=== PATIENT | female | born 2000 | race Caucasian/White ===

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

== ENCOUNTER 2019-09-18 17:58 | Emergency (ER) | payer SELFPAY ==
--- OUTSIDE RECORDS SUMMARY | 2019-09-18 18:03 | XMS REPORT | Continuity of Care Document ---
:2000 External Reference #:[id number] Author Name Fatimah Arrington MD Address [address] [place] [address] Care Team Providers Name Role Phone HCP given Care Team Information Telegraphic Service Dispatcher Unavailable Jon Garcia MD - Cardiovascular Care Team Information Telegraphic Service Dispatcher Disease Problems Active Problems Provider Date Irritable bowel syndrome with diarrhea Liset Carranza PA Onset: 02/03/2019 Adjustment disorder with mixed emotional features Liset Carranza PA Onset: Overweight Liset Carranza PA Onset: 02/03/2019 Allergic rhinitis Liset Carranza PA Onset: 02/03/2019 Social History Type Date Description Comments Sex Female Tobacco Use Reviewed: 02/03/19 Denies Cigarette Use Smoking Status Reviewed: 02/07/19 Denies Cigarette Use ETOH Use 02/03/2019 Denies alcohol use Recreational Drug Use Cannabis a couple times a month Tobacco Use Start: Unknown Non Smoker Exercise Type/Frequency Exercises rarely Sun Exposure Does not use sunscreen Seat Belt/Car Seat Seat Belt Use - Yes Smoke Alarms Yes smoke alarm Allergies, Adverse Reactions, Alerts Description No Known Drug Allergies Medications Active Medications SIG Qnty Indications Ordering Date Provider Depo-Provera 150mg intramuscular 1ml Z30.09 Farshad Parr, 02/03/2019 150mg/ml q3 months M.D. Suspension Tylenol Extra take 2 tablets 3x/day Unknown 01/30/2019 Strength for pain prn 500mg Tablets Medications Administered in Office Medication SIG Qnty Indications Ordering Provider Date SC/Im Injections Nurse's Schedule 07/30/2019 Injection SC/Im Injections Nurse's Schedule 05/08/2019 Injection SC/Im Injections Nurse's Schedule 02/06/2019 Injection Immunizations CPT Code Status Date Vaccine Lot # [id number] Given 04/03/2018 Hep A, Ped/Adolscent, 2 Dose 19502 Given 09/25/2017 Hep A, Ped/Adolscent, 2 Dose U-MenB Given 09/25/2017 Meningococcal B,Unspecified 02137 Given 09/25/2017 Adacel or Boostrix, TDaP 34142 Given 09/12/2016 Menactra Menningitis Vaccine U-MenB Given 09/07/2015 Meningococcal B,Unspecified 04793 Given 10/31/2011 Gardasil HPV vaccine 07103 Given 06/27/2011 Gardasil HPV vaccine 54097 Given 04/26/2011 Gardasil HPV vaccine 28161 Given 04/25/2011 Adacel or Boostrix, TDaP 92982 Given 01/22/2008 Menactra Menningitis Vaccine 45355 Given 01/22/2008 Varicella (Chicken Pox) Immunization 99464 Given 01/17/2004 Dtap Immunization (Tripedia) (Infanrix) 65023 Given 01/13/2004 Poliomyelitis Immunization 52944 Given 01/13/2004 MMR Virus Immunization 66139 Given 07/08/2000 Dtap Immunization (Tripedia) (Infanrix) 42866 Given 07/08/2000 Hepb-Hib 84086 Given 04/01/2000 Varicella (Chicken Pox) Immunization 82046 Given 04/01/2000 Poliomyelitis Immunization 52924 Given 04/01/2000 MMR Virus Immunization 97683 Given 01/22/2000 Hep B Immunization, Ped/Adolescent To 11 Yrs 02962 Given 1999 Hep B Immunization, Ped/Adolescent To 11 Yrs 96843 Given 1999 Dtap Immunization (Tripedia) (Infanrix) 47263 Given 1999 3 dose Hib (PRP-Omp) 36635 Given 1999 Poliomyelitis Immunization 37510 Given 1999 Dtap Immunization (Tripedia) (Infanrix) 28876 Given 1999 3 dose Hib (PRP-Omp) 05436 Given 1999 Poliomyelitis Immunization 49691 Given 1999 Dtap Immunization (Tripedia) (Infanrix) 72735 Given 1999 3 dose Hib (PRP-Omp) U-Flu Refused 05/11/2019 Influenza,Unspecified Vital Signs Date Vital Result Comment 08/07/2019 10:43am BP Systolic 112 mmHg BP Diastolic 60 mmHg Height 67.5 inches 5'7.50" Weight 220.00 lb BMI (Body Mass Index) 33.9 kg/m2 07/30/2019 4:03pm BP Systolic 120 mmHg BP Diastolic 68 mmHg Weight 221.00 lb Results Test Acquired Date Facility Test Result H/L Range Note Hepatitis C Antibody 08/07/2019 [facility] HCV Index 0.03 s/c [phone] Hepatitis C Antibody Negative Negative Liver Function 08/07/2019 [facility] Total Protein 6.8 g/dL Normal 6.4-8.9 Panel [phone] Albumin 4.4 g/dL Normal 3.2-5.2 Globulin 2.4 g/dL Normal 2-4 Albumin/Globulin Ratio 1.8 Normal 1-3 Total Bilirubin 0.50 mg/dL Normal 0.2-1.0 Direct Bilirubin 0.10 mg/dL Normal 0.03-0.18 Indirect Bilirubin 0.4 mg/dL Normal 0.3-1.0 Alkaline Phosphatase 76 U/L Normal 34-104 Alt 77 U/L High 7-52 Ast 73 U/L High 13-39 Laboratory test 05/25/2019 [facility] Creatine 281 U/L High 10-223 finding [phone] Kinase(CK) Ua Inhouse 05/11/2019 In House Ua Specific 1.015 [place] Ua PH 6.0 CBC Auto Diff 05/11/2019 [facility] White Blood 6.8 10^3/uL Normal 3.5-10.8 [phone] Count Red Blood Count 4.67 10^6/uL Normal 3.70-4.87 Hemoglobin 14.5 g/dL Normal 12.0-16.0 Hematocrit 41 % Normal 35-47 Mean Corpuscular Volume 88 fL Normal 80-97 Mean Corpuscular Hemoglobin 31 pg Normal 27-31 Mean Corpuscular HGB Conc 35 g/dL Normal 31-36 Red Cell Distribution Width 13 % Normal 10-15 Platelet Count 265 10^3/uL Normal 150-450 Mean Platelet Volume 9.6 fL Normal 7.4-10.4 Abs Neutrophils 3.2 10^3/uL Normal 1.5-7.7 Abs Lymphocytes 2.5 10^3/uL Normal 1.0-4.8 Abs Monocytes 0.7 10^3/uL Normal 0-0.8 Abs Eosinophils 0.3 10^3/uL Normal 0-0.6 Abs Basophils 0.0 10^3/uL Normal 0-0.2 Abs Nucleated RBC 0.0 10^3/uL Granulocyte % 47.2 % Lymphocyte % 36.9 % Monocyte % 10.8 % Eosinophil % 4.6 % Basophil % 0.5 % Nucleated Red Blood Cells % 0.0 Laboratory test 05/11/2019 [facility] Creatine 440 U/L High 10-223 finding [phone] Kinase(CK) Comp Metabolic 05/11/2019 [facility] Sodium 139 Normal 135-145 Panel [phone] mmol/L Potassium 4.2 mmol/L Normal 3.5-5.0 Chloride 107 mmol/L Normal 101-111 Co2 Carbon Dioxide 25 mmol/L Normal 22-32 Anion Gap 7 mmol/L Normal 2-11 Glucose 89 mg/dL Normal 70-100 Blood Urea Nitrogen 11 mg/dL Normal 6-24 Creatinine 0.90 mg/dL Normal 0.51-0.95 BUN/Creatinine Ratio 12.2 Normal 8-20 Calcium 9.6 mg/dL Normal 8.6-10.3 Total Protein 6.9 g/dL Normal 6.4-8.9 Albumin 4.5 g/dL Normal 3.2-5.2 Globulin 2.4 g/dL Normal 2-4 Albumin/Globulin Ratio 1.9 Normal 1-3 Total Bilirubin 0.30 mg/dL Normal 0.2-1.0 Alkaline Phosphatase 76 U/L Normal 34-104 Alt 28 U/L Normal 7-52 Ast 22 U/L Normal 13-39 Egfr Non- 79.8 >60 Egfr 96.6 >60 1 1 Because ethnic data is not always readily available, this report includes an eGFR for both -Americans and non- Americans. The National Kidney Disease Education Program (NKDEP) does not endorse the use of the MDRD equation for patients that are not between the ages of 18 and 70, are , have extremes of body size, muscle mass, or nutritional status, or are non- or non-. According to the National Kidney Foundation, irrespective of diagnosis, the stage of the disease is based on the level of kidney function: Stage Description GFR(mL/min/1.73 m(2)) 1 Kidney damage with normal or decreased GFR 90 2 Kidney damage with mild decrease in GFR 60-89 3 Moderate decrease in GFR 30-59 4 Severe decrease in GFR 15-29 5 Kidney failure <15 (or dialysis) Procedures Date Code Description Status 07/30/2019 96745 SC/Im Injections Completed 05/11/2019 78546 Electrocardiogram Complete Completed 05/08/2019 75442 SC/Im Injections Completed Medical Devices Description No Information Available Encounters Type Date Location Provider Dx Diagnosis Office Visit 08/07/2019 Main Office Fatimah Arrington MD R10.11 Right upper 10:30a quadrant pain R10.815 Periumbilic abdominal tenderness Z68.33 Body mass index (BMI) 33.0-33.9, adult Office Visit 05/11/2019 1:20p Main Office Latasha Lan P.Bhupendra. R00.2 Palpitations M79.10 Myalgia, unspecified site Office Visit 05/08/2019 2:00p Main Office Nurse's Z30.42 Encounter for Schedule surveillance of injectable contraceptive Assessments Date Code Description Provider 08/07/2019 R10.11 Right upper quadrant pain Fatimah Arrington MD 08/07/2019 R10.815 Periumbilic abdominal tenderness Fatimah Arrington MD 08/07/2019 Z68.33 Body mass index (BMI) 33.0-33.9, adult Fatimah Arrington MD 07/30/2019 Z30.013 Encounter for initial prescription of Nurse's Schedule injectable contracepti 05/11/2019 R00.2 Palpitations Latasha Lan P.A. 05/11/2019 M79.10 Myalgia, unspecified site Latasha Lan P.Bhupendra. 05/08/2019 Z30.42 Encounter for surveillance of injectable Nurse's Schedule contraceptive Plan of Treatment 02/03/2019 - Liset Carranza PAZ00.01 Encounter for general adult medical examination with abnormaComments:18 year old female. Screening updated. Awaiting old records.[facility] Amenorrhea, unspecifiedComments:Negative test again today. Discussed other causes for a missed period, including stress.Z30.09 Encounter for other general counseling and advice on contracNew Medication:Depo-Provera 150 mg/ml - 150mg intramuscular q3 monthsComments:Discussed control options, pt prefers Depo-Provera. Rx sent, pt will return for injection Q3 months.Follow up: schedule nurse visit for Depo asapK58.0 Irritable bowel syndrome with diarrheaComments:Likely IBS. Discussed impact of stress and unhealthy diet. Pt will work on stress reduction and improved diet.F43.23 Adjustment disorder with mixed anxiety and depressed moodComments:Discussed returning to counselor, but pt was hesitant. She refuses to try any medication for mood after severe reaction to one in the past. Monitor closely.E66.3 OverweightComments:Discussed healthy diet and regular exercise for weight loss.J30.9 Allergic rhinitis, unspecifiedComments:OTC allergy meds as needed. Functional Status Description No Information Available Mental Status Description No Information Available Referrals Refer to Reason for Referral Status Appt Date Jon Garcia MD holter monitor, in pt w skipped beats, and heart Closed palpitations that have recently worsen [address] [address] [phone]
[2019-09-18 18:26] VITALS: BP 153/87
--- NOTE | 2019-09-18 18:38 | UC ---
Abdominal Pain Female HPI - HPI Summary HPI Summary: 19 yo female presents with RUQ pain. She tells me that for the past month to month and a half she has been having intermittent RUQ pain that is mostly dull and achy, but is sharp at times. States this is worse after movement such as feeding her fishes in the fish tank. Not associated with eating. She does feel nauseous at times, but has not vomited. She saw her PCP and had labwork which she tells me showed elevated liver enzymes. She was scheduled for an ultrasound around 3 weeks ago, but did not go to this for some reason. Tonight she comes in because she is "tired of dealing with the pain" and wants to know what is going on. Her pain is not worse this evening, but is the same as prior events. She denies fever, chills, SOB, chest pain, dysuria, vomiting, diarrhea. States she has been to [facility] many times for this, but always waits 6+ hours and is never evaluated. - History of Current Complaint Chief Complaint: UCAbdominalPain Stated Complaint: SIDE PAIN Time Seen by Provider: 09/18/19 18:37 Hx Obtained From: Patient Hx Last Menstrual Period: months ago Onset/Duration: Gradual Onset Severity Initially: Moderate Severity Currently: Moderate Pain Intensity: 5 Allergies/Adverse Reactions: Allergies Allergy/AdvReac Type Severity Reaction Status Date / Time shamar Allergy Hives Verified 09/18/19 18:26 FLEA COLLARS Allergy Severe DIFFICULTY Uncoded 06/20/17 18:34 BREATHING, HIVES [place] Allergy Severe Hives Uncoded 06/20/17 18:34 birdox Allergy Hives Uncoded 09/18/19 18:26 Home Medications: Home Medications medroxyPROGESTERone ACETATE* [DEPO-Provera*] 150 mg PO 09/18/19 [History] PMH/Surg Hx/FS Hx/Imm Hx - Additional Past Medical History Additional PMH: None Other History Of: Negative For: HIV, Hepatitis B, Hepatitis C, Anticoagulant Therapy - Surgical History Surgical History: None - Family History Known Family History: Positive: Cardiac Disease, Other - Cancer Negative: Hypertension Family History: Dyslipidemia, cancer - Social History Lives: With Family Alcohol Use: None Substance Use Type: None Smoking Status (MU): Never Smoked Tobacco - Immunization History Most Recent Influenza Vaccination: 2015 Most Recent Tetanus Shot: UTD Vaccination Up to Date: Yes Review of Systems All Other Systems Reviewed And Are Negative: No Constitutional: Positive: Negative Skin: Positive: Negative Eyes: Positive: Negative ENT: Positive: Negative Respiratory: Positive: Negative Cardiovascular: Positive: Negative Gastrointestinal: Positive: Abdominal Pain, Nausea Genitourinary: Positive: Negative Motor: Positive: Negative Neurovascular: Positive: Negative Musculoskeletal: Positive: Negative Neurological/Mental Status: Positive: Negative Psychological: Positive: Negative Physical Exam - Summary Physical Exam Summary: GENERAL: NAD. WDWN. No pain distress. SKIN: No rashes, sores, lesions, or open wounds. NECK: Supple. Nontender. No lymphadenopathy. CHEST: CTAB. No r/r/w. No accessory muscle use. Breathing comfortably and in no distress. CV: RRR. Pulses intact. Cap refill <2seconds ABDOMEN: Soft. NTTP. No distention or guarding. No CVA tenderness. Bowel sounds present. Negative beard sign. No mcburney point tenderness. NEURO: Alert. PSYCH: Age appropriate behavior. Triage Information Reviewed: Yes Vital Signs: Initial Vital Signs Temp 98.7 F 09/18/19 18:19 Pulse 84 09/18/19 18:19 Resp 16 09/18/19 18:19 BP 153/87 09/18/19 18:19 Pulse Ox 100 09/18/19 18:19 Laboratory Tests 09/18/19 18:34 POC Urine Color Light yellow POC Urine Clarity Clear POC Urine pH 6.0 POC Ur Specif [place] 1.015 POC Urine Protein Negative POC Ur Glucose (UA) Negative POC Urine Ketones Negative POC Urine Blood 2+ A POC Urine Nitrite Negative POC Urine Bilirubin Negative POC Urine Urobilinogen 0.2 POC U Leukocyte Esteras Negative Vital Signs Reviewed: Yes Abd Pain Female Course/Dx - Course Course Of Treatment: UA as above. Abdominal exam wnl. I had a discussion with the pt that this evening at the time of her visit we do not have ultrasound ability and recommend she contact her PCP to reschedule her US, or she may try the ER for further evaluation. - Differential Dx/Diagnosis Provider Diagnosis: RUQ pain Discharge ED - Sign-Out/Discharge Documenting (check all that apply): Patient Departure All imaging exams completed and their final reports reviewed: No Studies - Discharge Plan Condition: Stable Disposition: HOME-RECOMMEND TO ED Referrals: Roland Mejias DO [Primary Care Provider] - Additional Instructions: I recommend that you go to the ER for further evaluation of your abdominal pain - Billing Disposition and Condition Condition: STABLE Disposition: Home-Recommend to ED
== END 2019-09-18 18:49 | disposition home health service (06) ==
LOC: UCEAST 17:58
DX: R10.11 Right upper quadrant pain (principal); R11.0 Nausea; Z91.018 Allergy to other foods; Z91.09 Other allergy status, other than to drugs and biological substances
CPT/HCPCS: 81003; 99212; G0463

== ENCOUNTER 2019-09-18 19:09 | Emergency (ER) | payer SELFPAY ==
[2019-09-18 20:51] LABS: ABS Basophils 0.1 10^3/ul (0-0.2); ABS Eosinophils 1.3 10^3/ul (0-0.6); ABS Lymphocytes 3.1 10^3/ul (1.0-4.8); ABS Monocytes 0.7 10^3/ul (0-0.8); ABS Neutrophils 3.4 10^3/ul (1.5-7.7); Eosinophil % 15.6 %; Hematocrit 44 % (35-47); Hemoglobin 15.5 g/dL (12.0-16.0); Lymphocyte % 35.9 %; Mean Corpuscular HGB Conc 36 g/dL (31-36); Mean Corpuscular Hemoglobin 32 pg (27-31); Mean Corpuscular Volume 90 fL (80-97); Mean Platelet Volume 8.6 fL (7.4-10.4); Nucleated Red Blood Cells % 0.1; Platelet Count 262 10^3/uL (150-450); Red Blood Count 4.83 10^6 /uL (3.70-4.87); Red Cell Distribution Width 13 % (10-15); White Blood Count 8.5 10^3/uL (3.5-10.8)
[2019-09-18 21:01] LABS: ALT 27 U/L (7-52); AST 20 U/L (13-39); Albumin 4.9 g/dL (3.2-5.2); Albumin/Globulin Ratio 1.7 (1-3); Alkaline Phosphatase 83 U/L (34-104); Anion Gap 7 mmol/L (2-11); BUN/Creatinine Ratio 11.4 (8-20); Blood Urea Nitrogen 9 mg/dL (6-24); C Reactive Protein 1.64 mg/L (<8.01); CO2 Carbon Dioxide 25 mmol/L (22-32); Calcium 9.7 mg/dL (8.6-10.3); Chloride 107 mmol/L (101-111); EGFR African American 112.3 (>60); EGFR Non-African American 92.8 (>60); Globulin 2.9 g/dL (2-4); Glucose 92 mg/dL (70-100); Sodium 139 mmol/L (135-145); Total Protein 7.8 g/dL (6.4-8.9)
[2019-09-18 21:07] LABS: HCG Pregnancy < 0.60 mIU/mL
--- NOTE | 2019-09-18 21:56 | ED ---
GI/ HPI - HPI Summary HPI Summary: 19-year-old female presents with abdominal pain for the past month. She states that she followed up with her primary was told that her liver enzymes were elevated and was supposed to have liver ultrasound. She states that the pain was worse today. States occasional nausea but no vomiting. Occasional diarrhea. No urinary symptoms. She denies any chest pain or shortness breath. Admits occasional cough. She denies any pain into her back. - History of Current Complaint Chief Complaint: EDAbdPain Time Seen by Provider: 09/18/19 20:48 Stated Complaint: SIDE PAIN PER PT Hx Last Menstrual Period: months ago Pain Intensity: 5 - Allergy/Home Medications Allergies/Adverse Reactions: Allergies Allergy/AdvReac Type Severity Reaction Status Date / Time shamar Allergy Hives Verified 09/18/19 19:22 FLEA COLLARS Allergy Severe DIFFICULTY Uncoded 09/18/19 19:22 BREATHING, HIVES [place] Allergy Severe Hives Uncoded 09/18/19 19:22 birdox Allergy Hives Uncoded 09/18/19 19:22 PMH/Surg Hx/FS Hx/Imm Hx Endocrine/Hematology History: Denies: Hx Anticoagulant Therapy, Hx Diabetes, Hx Thyroid Disease Cardiovascular History: Denies: Hx Congestive Heart Failure, Hx Deep Vein Thrombosis, Hx Hypertension , Hx Myocardial Infarction, Hx Pacemaker/ICD Respiratory History: Denies: Hx Asthma, Hx Chronic Obstructive Pulmonary Disease (COPD), Hx Lung Cancer, Hx Pneumonia, Hx Pulmonary Embolism GI History: Denies: Hx Gall Bladder Disease, Hx Gastrointestinal Bleed, Hx Ulcer, Hx Urosepsis History: Denies: Hx Kidney Stones, Hx Renal Disease Neurological History: Denies: Hx Dementia, Hx Migraine, Hx Seizures, Hx Transient Ischemic Attacks (TIA) Psychiatric History: Reports: Hx Anxiety, Hx Depression Denies: Hx Schizophrenia, Hx Bipolar Disorder Infectious Disease History: No Infectious Disease History: Denies: Hx Clostridium Difficile, Hx Hepatitis, Hx Human Immunodeficiency Virus (HIV), Hx of Known/Suspected MRSA, Hx Tuberculosis, Hx Known/Suspected VRE , Hx Known/Suspected VRSA, History Other Infectious Disease, Traveled Outside the [place] in Last 30 Days - Family History Known Family History: Positive: Cardiac Disease, Other - Cancer Negative: Hypertension Family History: Dyslipidemia, cancer - Social History Alcohol Use: None Substance Use Type: Reports: None Smoking Status (MU): Never Smoked Tobacco Review of Systems Negative: Fever Negative: Chest Pain Negative: Shortness Of Breath Positive: Abdominal Pain, Nausea. Negative: Vomiting All Other Systems Reviewed And Are Negative: Yes Physical Exam Triage Information Reviewed: Yes Vital Signs On Initial Exam: Initial Vitals Temp Pulse Resp BP Pulse Ox 98.3 F 88 16 127/85 100 09/18/19 19:17 09/18/19 19:17 09/18/19 19:17 09/18/19 19:17 09/18/19 19:17 Vital Signs Reviewed: Yes Appearance: Positive: Well-Appearing Skin: Positive: Warm, Dry Head/Face: Positive: Normal Head/Face Inspection Eyes: Positive: Normal, Conjunctiva Clear ENT: Positive: Pharynx normal Respiratory/Lung Sounds: Positive: Clear to Auscultation, Breath Sounds Present Cardiovascular: Positive: Normal, RRR Abdomen Description: Positive: Nontender, Soft Bowel Sounds: Positive: Present Musculoskeletal: Positive: Normal Neurological: Positive: Normal Psychiatric: Positive: Normal Procedures - Sedation Patient Received Moderate/Deep Sedation with Procedure: No Diagnostics - Vital Signs Vital Signs Temp Pulse Resp BP Pulse Ox 09/18/19 19:17 98.3 F 88 16 127/85 100 - Laboratory Lab Results: Lab Results 09/18/19 09/18/19 Range/Units 20:35 20:35 WBC 8.5 (3.5-10.8) 10^3/uL RBC 4.83 (3.70-4.87) 10^6 /uL Hgb 15.5 (12.0-16.0) g/dL Hct 44 (35-47) % MCV 90 (80-97) fL MCH 32 H (27-31) pg MCHC 36 (31-36) g/dL RDW 13 (10-15) % Plt Count 262 (150-450) 10^3/uL MPV 8.6 (7.4-10.4) fL Neut % (Auto) 39.4 % Lymph % (Auto) 35.9 % [place] % (Auto) 8.2 % Eos % (Auto) 15.6 % Baso % (Auto) 0.9 % Absolute Neuts (auto) 3.4 (1.5-7.7) 10^3/ul Absolute Lymphs (auto) 3.1 (1.0-4.8) 10^3/ul Absolute Monos (auto) 0.7 (0-0.8) 10^3/ul Absolute Eos (auto) 1.3 H (0-0.6) 10^3/ul Absolute Basos (auto) 0.1 (0-0.2) 10^3/ul Absolute Nucleated RBC 0.0 10^3/ul Nucleated RBC % 0.1 Sodium 139 (135-145) mmol/L Potassium 4.0 (3.5-5.0) mmol/L Chloride 107 (101-111) mmol/L Carbon Dioxide 25 (22-32) mmol/L Anion Gap 7 (2-11) mmol/L BUN 9 (6-24) mg/dL Creatinine 0.79 (0.51-0.95) mg/dL Est GFR ( Amer) 112.3 (>60) Est GFR (Non-Af Amer) 92.8 (>60) BUN/Creatinine Ratio 11.4 (8-20) Glucose 92 (70-100) mg/dL Calcium 9.7 (8.6-10.3) mg/dL Total Bilirubin 0.30 (0.2-1.0) mg/dL AST 20 (13-39) U/L ALT 27 (7-52) U/L Alkaline Phosphatase 83 (34-104) U/L C-Reactive Protein 1.64 (<8.01) mg/L Total Protein 7.8 (6.4-8.9) g/dL Albumin 4.9 (3.2-5.2) g/dL Globulin 2.9 (2-4) g/dL Albumin/Globulin Ratio 1.7 (1-3) Lipase 18 (11.0-82.0) U/L Beta HCG, Quant < 0.60 mIU/mL Result Diagrams: 09/18/19 20:35 09/18/19 20:35 Lab Statement: Any lab studies that have been ordered have been reviewed, and results considered in the medical decision making process. - Ultrasound No standard instances Ultrasound Interpretation Completed By: Radiologist Summary of Ultrasound Findings: IMPRESSION: Mild fatty liver. No gallstones or other acute process. GIGU Course/Dx - Course Course Of Treatment: 19-year-old female presents with abdominal pain for the past month. She states that she followed up with her primary was told that her liver enzymes were elevated and was supposed to have liver ultrasound. She states that the pain was worse today. States occasional nausea but no vomiting. Occasional diarrhea. No urinary symptoms. She denies any chest pain or shortness breath. Admits occasional cough. She denies any pain into her back. On exam is nontender abdomen. lungs CTA. wbc normal. lfts normal. Ultrasound shows mild fatty liver. Told to exercise and change diet. told follow-up with primary otherwise. Patient understands agrees plan. - Diagnoses Differential Diagnoses - Female: Gall Bladder Disease, Gastritis, Gastroenteritis (Viral) Provider Diagnoses: Abdominal pain Discharge ED - Sign-Out/Discharge Documenting (check all that apply): Patient Departure - Discharge Plan Condition: Good Disposition: HOME Patient Education Materials: Non-Alcoholic Fatty Liver Disease (ED) Referrals: Roland Mejias DO [Primary Care Provider] - Additional Instructions: follow up with primary within 5 days take ibuprofen every 6 hours as needed for pain Return to ED if develop any new or worsening symptoms - Billing Disposition and Condition Condition: GOOD Disposition: Home
[2019-09-18 22:16] VITALS: BP 117/80
== END 2019-09-18 22:15 | disposition home or self-care (01) ==
LOC: ED 19:09
DX: R10.9 Unspecified abdominal pain (principal); R11.0 Nausea; F41.9 Anxiety disorder, unspecified; F32.9 Major depressive disorder, single episode, unspecified
CPT/HCPCS: 36415; 76705; 80053; 83690; 84702; 85025; 86140; 99282